=== PATIENT | female | born 1980 | race Caucasian/White ===

== ENCOUNTER → 2023-06-12 01:41 | Outpatient (CLI) | payer OTHER, SELFPAY ==
--- NOTE | 2023-06-12 12:15 | DI.MAMMO_ITS ---
Exam(s) MAMMO SCREENING EXAM: MAMMO SCREENING CLINICAL HISTORY: screening. TECHNIQUE: Bilateral full field digital CC and MLO mammographic images were obtained with 3D tomosyn thesis and utilizing computer aided detection (CAD). COMPARISON: None. This is a baseline mammogram on this 42-year-old. FINDINGS: The fibroglandular tissue pattern is moderately dense. No significant radiographic findings in the left breast. In the most medial aspect of the right [address] there is a nodular density which I suspect may be a skin mole evidence relatively superficial loca tion.. This measures approximately 7 by 5 mm. This is located quite posteriorly, approximately 5 cm in from the nipple. There are benign microcalcifications superficially located in the right breast. There are no maligna nt-appearing microcalcification groups in either breast. There is no significant architectural distortion nor skin thickening-retraction. IMPRESSION: 1. No radiographic evidence of malignancy in left breast. 2. Nodular density posterior- medially in the right breast. Recommend additional views to determine if this is a skin mole or intramammary lymph node or other type of nodule. BI-RADS Category 0 - Assessment Incomplete: Need additional imaging evaluation Breast Density - Category B - Scattered areas of fibroglandular density Breast density Category C or D implies that the patient has dense breast tissue. Dense breast tissue can make it harder to find cancer on a mammogram. Dense breast tissue is also associated with an incr eased risk of breast cancer. This information about the result of the mammogram report was provided to the patient to raise their awareness. Use this report when you speak with the patient about their risks for breast cancer, which includes their family history. At that time, you may recommend additional screening tests (Ultrasoun d or MRI) as these tests may add significant information. A negative radiographic report should not delay biopsy if a dominant or clinically suspicious mass is present. Up to ten percent of cancers are not identified on mammography. A negative report may reinforce clinical impression. Adenosis and dense breasts may obscure an underlying neoplasm. False positive reports average 6 to 10%. Patient will receive a letter notifying them of these results.
== END ==
PROVIDERS: PCP Family Medicine; Visit Provider Obstetrics & Gynecology
DX: Z12.31 Encounter for screening mammogram for malignant neoplasm of breast (principal)
CPT/HCPCS: 77063; 77067

== ENCOUNTER → 2023-06-18 02:35 | Outpatient (CLI) | payer OTHER, SELFPAY ==
--- NOTE | 2023-06-18 | DI.MAMMO_ITS ---
Exam(s) MAMMO SCREEN CALL BACK UNI EXAM: MAMMO SCREEN CALL BACK UNI CLINICAL HISTORY: R92.8 Nodular density posterior-medical in rt breast. TECHNIQUE: Craniocaudal and mediolateral oblique Full Field Digital Mammography views of the right b reast with Computer Aided Diagnosis. COMPARISON: Comparison is made with prior examinations. FINDINGS: Mammography/Tomosynthesis: Masses/Architectural Distortion: The area of concern corresponds to a mole on the skin surface. No s uspicious masses or areas of architectural distortion are present. Microcalcifictions: No suspicious pleomorphic-type are seen. Skin Thickening/Nipple Retraction: None. IMPRESSION: 1. No evidence of malignancy is noted. 2. Unless there is more urgent need, follow-up screening mammography is recommended, as per [employer] [employer] guidelines. 3. The findings were discussed with the patient on the date of the examination. BI-RADS Category 1 - Negative Breast Density - Category B - Scattered areas of fibroglandular density Breast density Category C or D implies that the patient has dense breast tissue. Dense breast tissue can make it harder to find cancer on a mammogram. Dense breast tissue is also associated with an incr eased risk of breast cancer. This information about the result of the mammogram report was provided to the patient to raise their awareness. Use this report when you speak with the patient about their risks for breast cancer, which includes their family history. At that time, you may recommend additional screening tests (Ultrasoun d or MRI) as these tests may add significant information. A negative radiographic report should not delay biopsy if a dominant or clinically suspicious mass is present. Up to ten percent of cancers are not identified on mammography. A negative report may reinforce clinical impression. Adenosis and dense breasts may obscure an underlying neoplasm. False positive reports average 6 to 10%. Patient will receive a letter notifying them of these results.
== END ==
PROVIDERS: PCP Family Medicine; Visit Provider Obstetrics & Gynecology
DX: Z12.31 Encounter for screening mammogram for malignant neoplasm of breast (principal); R92.8 Other abnormal and inconclusive findings on diagnostic imaging of breast
CPT/HCPCS: 77063; 77067

== ENCOUNTER 2023-06-28 01:57 | Outpatient (CLI) | payer OTHER, SELFPAY ==
[2023-06-28 10:35] LABS: Abs Immature Grans 0.01 10^3/uL (0.0-0.06); Absolute Basophil Count 0.04 10^3/uL (0.0-0.2); Absolute Eosinophil Count 0.17 10^3/uL (0.0-0.7); Absolute Lymphocyte Count 2.19 10^3/uL (1.2-3.4); Absolute Monocyte Count 0.68 10^3/uL (0.1-0.8); Absolute Neutrophil Count 3.17 10^3/uL (1.2-6.7); Basophils % 0.6 %; Eosinophils % 2.7 %; HCT 39.1 % (36.0-46.0); HGB 13.2 g/dL (11.2-15.7); Immature Grans % 0.2 %; MCH 32.4 pg (27.0-33.0); MCHC 33.8 % (32.0-36.0); MCV 96 fL (80-95); Monocytes % 10.9 %; Neutrophils % 50.6 %; Platelet Count 268 10^3/uL (130-400); RBC 4.07 10^6/uL (3.93-5.22); RDW 12.6 % (11.7-14.6); RDW-SD 44.5 fL; WBC 6.26 10^3/uL (4.4-10.8)
[2023-06-28 11:06] LABS: ALT 30 U/L (14-59); AST 24 U/L (15-37); Albumin 3.6 g/dL (3.4-5.0); Alkaline Phosphatase 50 U/L (46-116); BUN 9 mg/dL (7-18); Bilirubin, Total 0.5 mg/dL (0.2-1.0); CREATININE 0.7 mg/dL (0.55-1.02); Calcium 8.8 mg/dL (8.5-10.1); Calculated LDL 132 mg/dL (<100); Chloride 105 mmol/L (98-107); Cholesterol 216 mg/dL (<200); Estimated GFR 111.36 (mL/min/1.73m2); Glucose 92 mg/dL (74-106); HDL Cholesterol 76 mg/dL (40-60); Potassium 4.1 mmol/L (3.5-5.1); Sodium 140 mmol/L (136-145); Total Protein 7.4 g/dL (6.4-8.2); Triglyceride 41 mg/dL (<150)
== END 2023-06-28 01:58 | disposition home or self-care (01) ==
LOC: LBO 01:57
PROVIDERS: PCP Family Medicine; Visit Provider Obstetrics & Gynecology
DX: Z00.00 Encounter for general adult medical examination without abnormal findings (principal)
CPT/HCPCS: 36415; 80053; 80061; 84443; 85025

== ENCOUNTER 2023-08-11 21:24 | Emergency (ER) | payer OTHER, SELFPAY ==
[2023-08-11 21:45] VITALS: BP 96/67; PULSE 77; RESP 15; TEMP 36.8; O2SAT 100
[2023-08-11] MEDS: Hydrocortisone 1% CR 30 GM TUBE TP (23:49)
[2023-08-11] MEDS: Loratidine 10 MG TAB PO (23:49)
[2023-08-11 23:50] VITALS: BP 110/70; PULSE 90; RESP 16; O2SAT 100
--- NOTE | 2023-08-12 20:20 | ED.GENADUL_ITS ---
Discharge Plan Disposition Patient Disposition: Home Condition: Stable Discharge Details Clinical Impression: Rash, Contact dermatitis Primary Care Provider: Frankie Celis ED Provider: Payton Nair Home Meds and New Rx's Prescriptions: New triamcinolone acetonide 0.1 % cream 1 applic topical TID Qty: 80 2RF Continued escitalopram oxalate [Lexapro] 5 mg tablet 15 mg PO DAILY Discharge Instructions Instructions: Contact dermatitis, Skin Rash ED Additional Instructions: Apply the triamcinolone 2 to 3 days times a day as needed Calamine lotion for drying lesions and itch You may also apply topical Benadryl Keep wounds clean and as dry as possible Unfortunately the rash can last anywhere from 2 to 3 weeks Please be sure to wash your shoes and exposed clothing in warm soapy water as that oils can continue to spread Referrals: Frankie Celis [Primary Care Provider] - 2 days Discharge Data Discharge Date/Time-TO BE ENTERED AT DEPARTURE: 08/12/23 00:27 HPI General Date/Time Provider Initiated Documentation: 08/11/23 22:04 . HPI Narrative: This 42-year-old female with history of anxiety presents with 1 week which she suspects is poison rodrigo to bilateral lower extremities. She was hiking and started. She has been trying some topical treatments states that getting worse despite this. She states it is quite itchy. Denies any associated pain. She has any fever or chills. She also reports that she has a rash that started 1 to 2 days ago on her abdomen is unsure as to whether this is related. She denies any systemic signs of illness. She states the rash on her abdomen and thorax is asymptomatic. She denies any new medications, the only medication she takes is Lexapro. Related Data Home Medications Medication Instructions Recorded Confirmed escitalopram oxalate 5 mg tablet 15 mg PO DAILY 05/24/23 08/11/23 (Lexapro) triamcinolone acetonide 0.1 % 1 applic topical TID #80 grams 08/11/23 topical cream Previous Rx's Medication Instructions Recorded triamcinolone acetonide 0.1 % 1 applic topical TID #80 grams 08/11/23 topical cream Allergies Allergy/AdvReac Type Severity Reaction Status Date / Time No Known Allergies Allergy Verified 05/24/23 10:59 General Stated Complaint: RashLesion LACEY: 3 Exam Narrative Exam Narrative: Well-appearing 42-year-old female, Rash which is blanching to thorax/abdomen, nontender, no prior or petechia, no erythema. Papular, vesicular, macerated rash extensively noted to bilateral lower extremities, no evidence of secondary infection, no respiratory distress, alert and oriented, cardiac rate rhythm regular, no abdominal tenderness, no meningismus alert and oriented x 4 cardiac rhythm regular Course Vital Signs Vital signs: Vital Signs Temperature 36.8 C 08/11/23 21:45 Pulse 77 08/11/23 21:45 Respiratory Rate 15 08/11/23 21:45 Blood Pressure 96/67 L 08/11/23 21:45 Pulse Oximetry 100 08/11/23 21:45 Temperature 36.8 C 08/11/23 21:45 Temperature Source Temporal Artery Scan 08/11/23 21:45 Pulse 90 08/11/23 23:50 Respiratory Rate 16 08/11/23 23:50 Respiratory Effort Normal, Non-Labored 08/11/23 21:50 Blood Pressure 110/70 08/11/23 23:50 Blood Pressure Position Sitting 08/11/23 21:45 Pulse Oximetry 100 08/11/23 23:50 Oxygen Delivery Method Room Air 08/11/23 21:45 Oxygen Flow Rate 0 08/11/23 21:45 Pain Level 3 08/11/23 21:45 Medical Decision Making 42-year-old female presenting with likely contact dermatitis and another possible viral eruption and thorax. I did offer her a 3-week course of prednisone but did discuss the risks associated with taking this medication and patient prefers at this time to continue with supportive care. She will use topical triamcinolone, calamine lotion, and take Claritin daily. She is aware to look for signs of secondary infection. In terms of the rash recurrence of uncertain as to what this is but I do not think to lymphomatous etiology. Is blanching patient does not have any risky behaviors or use any illicit drugs. She is encouraged patient since he is encouraged to take Claritin return immediately should she have worsening complaints, no respiratory distress, uvula midline, speaking, denies any sore throat or additional symptoms including upper respiratory symptoms. Headache or stiff neck. Quality:SDOH Health Related Social Needs: No Data to Display PFSH All Active Problems (Updated 08/11/23 @ 23:13 by CALISTA Vergara) Contact dermatitis (Acute) Rash (Acute) Routine check-up (Acute) DUB (dysfunctional uterine bleeding) (Acute) Anxiety (Chronic) Social History Smoking/Tobacco Use Status: Never Smoking risk assessment performed?: Yes Alcohol Intake: current Alcohol Intake frequency: holidays/special occasions only Drug use: Never Substance use type: does not use Housing: house Do you feel safe at home: Yes Do you feel safe in your relationship?: Yes History History 3 Para 2 Hx # Term Pregnancies 2 Multiple births Hx # Pregnancies Ectopic pregnancies AB induced Hx Number of Living Children 2 AB spontaneous PAWSS Have you Been Recently Intoxicated or Drunk Within the Last 30 days?: No Have you Ever Experienced Previous Episodes of Alcohol Withdrawal?: No Have you ever Experienced Withdrawal Seizures?: No Have you ever Experienced Delirium Tremens(DT)s?: No Have you ever undergone Alcohol Rehabilitation Treatment (i.e, inpt ot outpatient treatment programs)?: No Have you ever Experienced Blackouts?: No Have you ever Combined Alcohol with other Downers within the last 90 days?: No Have you ever Combined Alcohol with any other Substance of Abuse during the last 90 days?: No Positive Blood Alcohol level on Presentation? [PCS.BAL]: No Evidence of Increased Autonomic Activity (i.e. HR>120, tremor, sweating, agitation, nausea)?: No Result: 0
== END 2023-08-12 00:27 | disposition home or self-care (01) ==
PROVIDERS: Emergency Provider Physician Assistant; PCP Family Medicine
DX: L23.7 Allergic contact dermatitis due to plants, except food (principal); R21 Rash and other nonspecific skin eruption
CPT/HCPCS: 99283; 99284

== ENCOUNTER 2024-02-21 09:27 | Outpatient (CLI) | payer BC, SELFPAY ==
[2024-02-21 09:10] LABS: Abs Immature Grans 0.02 10^3/uL (0.0-0.06); Absolute Basophil Count 0.05 10^3/uL (0.0-0.2); Absolute Eosinophil Count 0.37 10^3/uL (0.0-0.7); Absolute Lymphocyte Count 2.43 10^3/uL (1.2-3.4); Absolute Monocyte Count 0.73 10^3/uL (0.1-0.8); Absolute Neutrophil Count 3.24 10^3/uL (1.2-6.7); Basophils % 0.7 %; Eosinophils % 5.4 %; Immature Grans % 0.3 %; Lymphocytes % 35.5 %; MCH 32.6 pg (27.0-33.0); MCHC 34.2 % (32.0-36.0); MCV 95 fL (80-95); MPV 10.5 fL (8.0-11.0); Monocytes % 10.7 %; Neutrophils % 47.4 %; Platelet Count 252 10^3/uL (130-400); RBC 3.99 10^6/uL (3.93-5.22); RDW 13.1 % (11.7-14.6); RDW-SD 45.9 fL; WBC 6.84 10^3/uL (4.4-10.8)
[2024-02-21 10:09] LABS: Iron 97 ug/dL (50-170); Total Iron Binding Capacity 328 ug/dL (250-450); Transferrin Sat 30 % (15-50)
[2024-02-21 10:37] LABS: Folate 18.7 ng/mL (8.6-20.0); TSH 5.09 uIU/mL (0.36-3.74); Vitamin B12 419 pg/mL (193-986); Vitamin D 25 Total 23.8 ng/mL (30-100)
[2024-02-21 10:52] LABS: FREE T4 0.72 ng/dL (0.76-1.46)
[2024-02-24 09:53] LABS: Lyme Ab w Rflx to Lyme Confirm Negative (Negative)
[2024-02-24 15:27] LABS: Anaplasma phagocytophilum Ab <1:64 titer (<1:64); Ehrlichia Chaffeensis(HME) IgG <1:64 titer (<1:64)
== END 2024-02-21 09:28 | disposition home or self-care (01) ==
LOC: LBO 09:28
PROVIDERS: PCP Family Medicine
DX: R53.83 Other fatigue (principal)
CPT/HCPCS: 36415; 82306; 82533; 86003; 86666; 86753; 82607; 82746; 83540; 83550; 84439; 84443; 85025; 86618

== ENCOUNTER 2024-07-07 10:46 | Outpatient (CLI) | payer BC, SELFPAY ==
--- NOTE | 2024-07-07 09:19 | DI.MAMMO_ITS ---
Exam(s) MAMMO SCREENING EXAM: MAMMO SCREENING CLINICAL HISTORY: screening Z12.39. TECHNIQUE: Bilateral full field digital CC and MLO mammographic images were obtained with 3D tomosyn thesis and utilizing computer aided detection (CAD). COMPARISON: Prior baseline mammogram of June 2023 was reviewed. FINDINGS: There has been no significant change in the appearance and distribution of the fibroglandular tissue. There are no CAD designations. There are no new spiculated masses nor malignant appearing microcalcification groups. The previously described skin mole on the medial aspect of the right breast is again noted. There is no significant architectural distortion nor skin thickening-retraction. IMPRESSION: No radiographic evidence of malignancy. BI-RADS Category 1 - Negative Breast Density - Category B - There are scattered areas of fibroglandular density. Breast density Category C or D implies that the patient has dense breast tissue. Dense breast tissue can make it harder to find cancer on a mammogram. Dense breast tissue is also associated with an incr eased risk of breast cancer. This information about the result of the mammogram report was provided to the patient to raise their awareness. Use this report when you speak with the patient about their risks for breast cancer, which includes their family history. At that time, you may recommend additional screening tests (Ultrasoun d or MRI) as these tests may add significant information. A negative radiographic report should not delay biopsy if a dominant or clinically suspicious mass is present. Up to ten percent of cancers are not identified on mammography. A negative report may reinforce clinical impression. Adenosis and dense breasts may obscure an underlying neoplasm. False positive reports average 6 to 10%. Patient will receive a letter notifying them of these results.
== END 2024-07-07 11:06 ==
LOC: DI 10:46
PROVIDERS: PCP Family Medicine; Visit Provider Obstetrics & Gynecology
DX: Z12.31 Encounter for screening mammogram for malignant neoplasm of breast (principal); R92.323 Mammographic fibroglandular density, bilateral breasts
CPT/HCPCS: 77063; 77067

== ENCOUNTER 2024-07-07 10:47 | Outpatient (CLI) | payer BC, SELFPAY ==
[2024-07-07 09:34] LABS: Abs Immature Grans 0.01 10^3/uL (0.0-0.06); Absolute Basophil Count 0.04 10^3/uL (0.0-0.2); Absolute Eosinophil Count 0.23 10^3/uL (0.0-0.7); Absolute Lymphocyte Count 1.85 10^3/uL (1.2-3.4); Absolute Monocyte Count 0.61 10^3/uL (0.1-0.8); Absolute Neutrophil Count 3.26 10^3/uL (1.2-6.7); Basophils % 0.7 %; Eosinophils % 3.8 %; HCT 37.9 % (36.0-46.0); HGB 12.7 g/dL (11.2-15.7); Immature Grans % 0.2 %; Lymphocytes % 30.8 %; MCH 31.8 pg (27.0-33.0); MCHC 33.5 % (32.0-36.0); MCV 95 fL (80-95); MPV 10.7 fL (8.0-11.0); Monocytes % 10.2 %; Neutrophils % 54.3 %; Platelet Count 264 10^3/uL (130-400); RBC 3.99 10^6/uL (3.93-5.22); RDW 12.4 % (11.7-14.6); RDW-SD 43.1 fL
[2024-07-07 10:07] LABS: ALT 29 U/L (14-59); AST 28 U/L (15-37); Albumin 3.7 g/dL (3.4-5.0); Alkaline Phosphatase 58 U/L (46-116); Anion Gap 6.8 mmol/L (3-11); BUN 4 mg/dL (7-18); Bilirubin, Total 0.5 mg/dL (0.2-1.0); CO2 28.2 mmol/L (21.0-32.0); CREATININE 0.6 mg/dL (0.55-1.02); Calcium 9.2 mg/dL (8.5-10.1); Chloride 105 mmol/L (98-107); Estimated GFR 114.86 (mL/min/1.73m2); Glucose 97 mg/dL (74-106); Potassium 4.1 mmol/L (3.5-5.1); Sodium 140 mmol/L (136-145); TSH (W/Ref FT4) 2.42 uIU/mL (0.36-3.74); Total Protein 7.3 g/dL (6.4-8.2)
[2024-07-07 19:33] LABS: T3, Total 141 ng/dL (97-169)
[2024-07-08 15:43] LABS: Ferritin 18 ng/mL (8-252)
== END 2024-07-07 10:48 | disposition home or self-care (01) ==
LOC: LBO 10:47
PROVIDERS: PCP Family Medicine; Visit Provider Obstetrics & Gynecology
DX: N93.8 Other specified abnormal uterine and vaginal bleeding (principal)
CPT/HCPCS: 36415; 80053; 82728; 84443; 84480; 85025